=== PATIENT | female | born 1950 | race Caucasian/White ===

== ENCOUNTER 2016-11-29 10:10 | Day surgery (SDC) | payer MEDICARE ==
[~2016-11-29] VITALS: Ht 165.1 cm; Wt 49.1 kg
--- NOTE | ~2016-11-29 | OP ---
PATIENT NAME: RASHMI TRIPATHI MEDICAL RECORD: [id number] :46 LOCATION:[facility] ADMISSION DATE: SURGEON: DARIUS COSTA DO DATE OF OPERATION: 11/29/2016 PROCEDURE: EGD with biopsies. SCOPE: Olympus video gastroscope. MEDICATIONS: Propofol 210 mg IV per anesthesia. INDICATIONS FOR PROCEDURE: Iron deficiency anemia, epigastric abdominal pain, dysphagia, heartburn, nausea and vomiting, abnormal weight loss. FINDINGS: Informed consent was given. The patient was made comfortable with the above medication. Once an adequate level of sedation was reached, the patient was placed in the left side. The endoscope was then advanced under direct visualization through the mouth to the second portion of the duodenum. The upper, middle and lower thirds of the esophagus all appeared normal. The GE junction had a normal appearing Z line without evidence of esophagitis. Scope was advanced through the GE junction and retroflexed to view the cardia. There was a small sliding hiatal hernia present. In the fundus, there was a single AV malformation measuring approximately 2 mm in size without bleeding stigmata. No interventions were performed. The body of the stomach, antrum, and prepyloric region appeared normal. The scope was advanced through the pylorus into the duodenum where the bulb appeared normal. In the second portion of duodenum, there was an area of interest that appeared plaque-like. It is possible that this also was granulation tissue. Two biopsies were performed with cold forceps then sent for histology. The entire plaque was not removed, so this will need further intervention if this turns out to be adenomatous tissue or suspicious for other findings. The scope was withdrawn from the patient. The patient tolerated the procedure well. There were no complications. ESTIMATED BLOOD LOSS: Less than 3 cc. IMPRESSION: 1. Small sliding hiatal hernia. 2. Single diminutive AV malformation in the fundus of the stomach. 3. Plaque versus polyp versus adenomatous tissue in the duodenum/second portion. Biopsies taken. There were also random gastric biopsies taken and submitted for histology. PLAN AND RECOMMENDATION: 1. Discharge home when recovery parameters are met. 2. Continue current diet. 3. Continue current medications. 4. Proceed with colonoscopy as planned. 5. Await biopsy results for further recommendations regarding plaque-like tissue in the duodenum. TRANSINT:[id number] Voice Confirmation ID: [id number] DOCUMENT ID: [id number] OPERATIVE REPORT [id number] RASHMI TRIPATHI NATHAN A DO CC: [id number] DICTATION DATE: 11/29/16 1309 GUIDANCE CONSULTANT: 11/29/16 1527 [facility] 11/29/16 [id number] [place] [address]
[2016-11-29] MEDS ORDERED: BETAPACE 80 MG80 MG PO (10:34)
[2016-11-29] MEDS ORDERED: LANOXIN250 MCG PO (10:34)
[2016-11-29] MEDS ORDERED: OMEPRAZOLE20 M1 PO (10:35)
[2016-11-29] MEDS ORDERED: LEVOTHYROXINE75 MCG PO (10:35)
[2016-11-29] MEDS ORDERED: ACETAMINOPHEN325 MG PO (10:36)
[2016-11-29] MEDS ORDERED: ATIVAN1 MG PO (10:37)
[2016-11-29] MEDS ORDERED: ULTRAM50 MG PO (10:37)
[2016-11-29] MEDS ORDERED: SPIRIVA18 MCG INH ×2 (10:38→10:41)
[2016-11-29] MEDS ORDERED: ADVAIR HFA 230-12 GM INH (10:38)
[2016-11-29] MEDS ORDERED: ZANAFLEX4 MG PO (10:38)
[2016-11-29] MEDS ORDERED: IPRAT-ALBUT 0.5-3 ML UPD (10:39)
[2016-11-29 10:56] VITALS: BP 148/70; Ht 165.1 cm; Wt 49.1 kg
[2016-11-29 11:28] LABS: BASOPHILS 0.4 % (0.0-2.0); EOSINOPHILS 1.3 % (0-7); HEMATOCRIT 32.9 % (36.0-48.0); HEMOGLOBIN 10.7 g/dL (12-16); IMMATURE GRANULOCYTES 0.1 % (0-5); MCH 32.1 pg (26.0-34.0); MCHC 32.5 g/dL (31.0-37.0); MCV 98.8 fL (80.0-100.0); MEAN PLATELET VOLUME 11.2 fL (7.4-10.4); MONOCYTES 6.6 % (2-11); NEUTROPHILS 71.6 % (40-80); PLATELET COUNT 344 10x3/uL (130-400); RBC 3.33 10x6/uL (4.00-5.40); RDW 17.4 % (11.5-14.5); WBC 6.7 10x3/uL (4.8-10.8)
[2016-11-29 11:56] LABS: CALC OSMOLALITY 265 mosm/kg (275-300); CALCIUM 8.2 mg/dL (8.5-10.1); CHLORIDE - SERUM 100 mmol/L (98-107); CREATININE - SERUM 0.7 mg/dL (0.6-1.3); GLUCOSE 79 mg/dL (74-106); POTASSIUM - SERUM 5.4 mmol/L (3.5-5.1); SODIUM 133 mmol/L (136-145); UREA NITROGEN 15 mg/dL (7-18); eGFR NON AFRICAN AMERICAN 88 mL/min (90-120)
[2016-12-01 12:20] LABS: % SATURATION 6 % (15-55); IRON 29 ug/dl (35-150); TOTAL IRON BIND CAPACITY 435 ug/dl (260-445); UNSAT IRON BIND CAPACITY 406 ug/dl (150-375)
== END 2016-11-29 13:59 | disposition home or self-care (01) ==
LOC: D.OPS 10:10
PROVIDERS: Anesthesiology; Internal Medicine
DX: K44.9 Diaphragmatic hernia without obstruction or gangrene (principal); Q27.33 Arteriovenous malformation of digestive system vessel; K31.9 Disease of stomach and duodenum, unspecified; D50.9 Iron deficiency anemia, unspecified; R13.10 Dysphagia, unspecified; R12 Heartburn

== ENCOUNTER 2016-12-07 07:50 | Day surgery (SDC) | payer MEDICARE ==
[~2016-12-07 07:50] MED LIST: ACETAMINOPHEN325 MG PO; ADVAIR HFA 230-12 GM INH; ATIVAN1 MG PO; BETAPACE 80 MG80 MG PO; IPRAT-ALBUT 0.5-3 ML UPD; LANOXIN250 MCG PO; LEVOTHYROXINE75 MCG PO; OMEPRAZOLE20 M1 PO; SPIRIVA18 MCG INH; ULTRAM50 MG PO; ZANAFLEX4 MG PO
[2016-12-07 08:50] VITALS: BP 173/69; Ht 165.1 cm
[2016-12-07 08:52] LABS: HEMATOCRIT 35.3 % (36.0-48.0); HEMOGLOBIN 11.4 g/dL (12-16); MCH 31.6 pg (26.0-34.0); MCHC 32.3 g/dL (31.0-37.0); MCV 97.8 fL (80.0-100.0); MEAN PLATELET VOLUME 10.2 fL (7.4-10.4); RBC 3.61 10x6/uL (4.00-5.40); RDW 16.3 % (11.5-14.5); WBC 6.1 10x3/uL (4.8-10.8)
--- NOTE | 2016-12-07 12:39 | NUR ---
1215 IV DC WITH CATHER TIP INTACT PT HAS A SKIN TEAR TO HER UPPER LEFT ARM , NON ADHSIVE DRESSING WITH GUAZE AND PAPER TAPE , PT STATED SHE HAD MEDICATION AT HOME FROM OTHER SKIN TEAR
--- NOTE | 2016-12-11 13:02 | OP ---
PATIENT NAME: RASHMI TRIPATHI MEDICAL RECORD: [id number] :48 LOCATION:[facility] ADMISSION DATE: SURGEON: DARIUS COSTA DO DATE OF OPERATION: 12/07/2016 PROCEDURE: Colonoscopy with endoscopic mucosal resection and snare polypectomy. SCOPE: Olympus video pediatric colonoscope. MEDICATIONS: Propofol 540 mg IV per anesthesia. INDICATIONS FOR PROCEDURE: Anemia, iron deficiency type and abnormal weight loss. FINDINGS: Informed consent was given. The patient was made comfortable with the above medication. After reaching an adequate level of sedation by slow IV push, the patient was placed on her left side. A digital rectal examination was performed and was within normal limits. The scope was advanced under direct visualization through the rectum to the terminal ileum. The scope was slowly withdrawn. The mucosa was carefully examined. There were 5 separate polyps encountered during this examination. They ranged in size from 7 mm to 2 cm. They were all sessile appearing and flat lesions. All polyps were lifted with saline prior to snare cautery polypectomy. The first was located in the cecum, the second polyp was located in the ascending colon. This polyp required a single endoclip for defect closure after the polypectomy. There were 3 polyps located in the transverse colon. Three endoclips were used between the 3 polyps in the transverse colon. There were a couple AV malformations located in the ascending colon and cecum. There was no active bleeding from these sites. There were also small internal hemorrhoids, which were not bleeding visualized on retroflexion in the rectum. The scope was withdrawn from the patient. The patient tolerated the procedure well and there were no complications. IMPRESSIONS: 1. Five separate large sessile polyps removed using endoscopic mucosal resection technique with saline lift and snare cautery polypectomy. 2. Arteriovenous malformations, which were not bleeding. 3. Small internal hemorrhoids, which were not bleeding. PLAN AND RECOMMENDATIONS: 1. Discharge home when recovery parameters are met. 2. Continue current medications. 3. Continue current diet. 4. Consider capsule endoscopy to evaluate the small intestine in light of no abnormal findings to describe her anemia on the upper and lower endoscopy. 5. Recall colonoscopy in 6 months for evaluation of multiple large polyps removed. TRANSINT:[id number] Voice Confirmation ID: [id number] DOCUMENT ID: [id number] OPERATIVE REPORT [id number] RASHMI TRIPATHI DARIUS COSTA DO at 1302 CC: [id number] DICTATION DATE: 12/07/16 1132 MOLDING UTILITY WORKER: 12/07/16 1335 [facility] 12/07/16 [id number] [place] [address]
== END 2016-12-07 12:37 | disposition home or self-care (01) ==
LOC: D.OPS 07:50
PROVIDERS: Anesthesiology
DX: D12.2 Benign neoplasm of ascending colon (principal); D12.0 Benign neoplasm of cecum; D12.3 Benign neoplasm of transverse colon; Q27.33 Arteriovenous malformation of digestive system vessel; K64.8 Other hemorrhoids; D50.9 Iron deficiency anemia, unspecified; R63.4 Abnormal weight loss